=== PATIENT | female | born 1995 | race Caucasian/White ===

== ENCOUNTER 2017-05-11 18:50 | Outpatient (CLI) | payer OTHER | END 2017-05-11 18:51 | disposition critical access hospital (66) | LOC: EMS 18:50 | PROVIDERS: ATTEND Surgery | DX: R55 Syncope and collapse (principal) | CPT/HCPCS: A0425; A0427 ==

== ENCOUNTER 2017-05-11 19:00 | Emergency (ER) | payer OTHER ==
[2017-05-11] MEDS ORDERED: SODIUM CHLORIDE 0.9% 1,000 ML IV ONE (19:31)
--- NOTE | 2017-05-11 19:34 | ED Physician Documentation ---
PD HPI SYNCOPE - Stated complaint Stated Complaint: SYNCOPE - Chief complaint Chief Complaint: Neuro - History obtained from History obtained from: Patient, Family - History of Present Illness Witnessed: Witnessed Timing - onset: Today Duration: Minutes (1) Preceding symptoms: Abdominal pain (states). No: Nausea / vomiting Injury occurred: No: Fell Pain level max: 0 Similar symptoms before: Has not had sx before Recently seen: Not recently seen - Additional information Additional information: Patient is a 21-year-old female who presents to the emergency department with syncope today. She was in hot bath, felt lightheaded, stood up out of the bath , began to feel more lightheaded and dizzy and then passed out against the wall. She was found to be hypotensive with EMS and given IV fluids. Blood sugar was normal with EMS. States she is starting to feel better now. Has not passed out before. She is currently on her menses. Denies any possibility of . No new medication that she is on. No recent illnesses. No chest pain. No palpitations. Review of Systems Constitutional: denies: Fever, Chills Ears: denies: Ear pain Nose: denies: Rhinorrhea / runny nose, Congestion Throat: denies: Sore throat Cardiac: denies: Chest pain / pressure Respiratory: denies: Cough GI: reports: Abdominal Pain (initially had a small amount of abd pain, but now resolved.). denies: Nausea, Vomiting, Diarrhea Skin: denies: Rash Musculoskeletal: denies: Neck pain, Back pain Neurologic: denies: Headache PD PAST MEDICAL HISTORY - Past Medical History Past Medical History: No Cardiovascular: None Respiratory: None Neuro: None Endocrine/Autoimmune: None GI: None CHANGE MANAGEMENT CONSULTANT: None : None HEENT: None Psych: None Musculoskeletal: None Derm: None - Past Surgical History Past Surgical History: No - Present Medications Home Medications: Ambulatory Orders Medication Instructions Recorded Confirmed Baclofen 0 mg PO PRN 05/11/17 Norethindrone-E.estradiol-Iron 1 each PO DAILY 05/11/17 05/11/17 [[id number] 1-0.02(44)-75] - Allergies Allergies/Adverse Reactions: Allergies Allergy/AdvReac Type Severity Reaction Status Date / Time No Known Drug Allergies Allergy Verified 05/11/17 19:12 - Social History Does the pt smoke?: No Smoking Status: Never smoker Does the pt drink ETOH?: No Does the pt have substance abuse?: No - Immunizations Immunizations are current?: Yes PD ED PE NORMAL - Vitals Vital signs reviewed: Yes - General General: Alert and oriented X 3, No acute distress, Well developed/nourished - HEENT HEENT: PERRL, Ears normal, Moist mucous membranes, Pharynx benign, Other ( abrasion to the forehead. no scalp hematomas. no palpable fractures) - Neck Neck: Supple, no meningeal sign, No bony TTP - Cardiac Cardiac: RRR, Strong equal pulses - Respiratory Respiratory: No respiratory distress, Clear bilaterally - Abdomen Abdomen: Soft, Non tender, Non distended - Back Back: No CVA TTP, No spinal TTP - Derm Derm: Warm and dry, No rash - Extremities Extremities: No deformity, No tenderness to palpate, Normal ROM s pain - Neuro Neuro: Alert and oriented X 3, leadership development manager 2-12 intact Eye Opening: Spontaneous Motor: Obeys Commands Verbal: Oriented GCS Score: 15 - Psych Psych: Normal mood, Normal affect Results - Vitals Vitals: Vital Signs - 24 hr 05/11/17 05/11/17 05/11/17 19:07 19:28 20:21 Temperature 37.2 C Heart Rate 76 89 84 Respiratory 16 18 18 Rate Blood Pressure 123/70 123/70 107/62 O2 Saturation 99 100 99 Oxygen O2 Source Room air - EKG (time done) 1912 Rate: Rate (enter#) (80) Rhythm: NSR [place]: Normal Intervals: Normal [place] QRS: Normal Ischemia: Normal ST segments Computer interpretation: Agree with computer - Labs Labs: Laboratory Tests 05/11/17 05/11/17 05/11/17 19:22 19:22 20:07 WBC 7.5 RBC 4.23 Hgb 12.5 Hct 37.3 MCV 88.2 MCH 29.6 MCHC 33.6 RDW 13.3 Plt Count 243 MPV 8.3 Neut # 5.2 Lymph # 1.8 [place] # 0.3 Eos # 0.1 Baso # 0.1 Absolute Nucleated RBC 0.00 Nucleated RBC % 0.0 Sodium 137 Potassium 3.5 Chloride 105 Carbon Dioxide 22 Anion Gap 10.0 BUN 8 Creatinine 0.7 Estimated GFR (MDRD) 108 Glucose 85 Calcium 8.9 Urine Color YELLOW Urine Clarity CLEAR Urine pH 6.0 Ur Specific [place] >=1.030 H Urine Protein NEGATIVE Urine Glucose (UA) NEGATIVE Urine Ketones 15 H Urine Occult Blood TRACE-INTA Urine Nitrite NEGATIVE Urine Bilirubin NEGATIVE Urine Urobilinogen 0.2 (NORMAL) Ur Leukocyte Esterase NEGATIVE Ur Microscopic Review NOT INDICATED Urine Culture Comments NOT INDICATED Urine HCG, Qual 05/11/17 20:07 WBC RBC Hgb Hct MCV MCH MCHC RDW Plt Count MPV Neut # Lymph # [place] # Eos # Baso # Absolute Nucleated RBC Nucleated RBC % Sodium Potassium Chloride Carbon Dioxide Anion Gap BUN Creatinine Estimated GFR (MDRD) Glucose Calcium Urine Color Urine Clarity Urine pH Ur Specific [place] >=1.030 H Urine Protein Urine Glucose (UA) Urine Ketones Urine Occult Blood Urine Nitrite Urine Bilirubin Urine Urobilinogen Ur Leukocyte Esterase Ur Microscopic Review Urine Culture Comments Urine HCG, Qual NEGATIVE PD MEDICAL DECISION MAKING - ED course Complexity details: reviewed results, re-evaluated patient, considered differential, d/w patient, d/w family ED course: Patient is a 21-year-old female who presents to the emergency department after an episode of vasovagal syncope today. She feels better after IV fluids here. Tolerating p.o. without difficulty. We will continue supportive care and follow -up with her doctor. No arrhythmias on telemetry. Normal EKG. Normal laboratory testing. Patient and family counseled regarding signs and symptoms for which I believe and urgent re-evaluation would be necessary. Patient with good understanding of and agreement to plan and is comfortable going home at this time This document was made in part using voice recognition software. While efforts are made to proofread this document, sound alike and grammatical errors may occur. Departure - Departure Disposition: 01 Home, Self Care Clinical Impression: Vasovagal syncope, Dehydration Condition: Good Instructions: ED Syncope Vasovagal Follow-Up: MICHEAL PEARL [Primary Care Provider] - Within 1 week Comments: Drink plenty of fluids and rest. Return if you worsen. Discharge Date/Time: 05/11/17 20:40
[2017-05-11 19:40] LABS: BASOPHILS # (AUTO) 0.1 10^3/uL (0.0-0.1); BASOPHILS % (AUTO) 1.1 %; EOSINOPHILS # (AUTO) 0.1 10^3/uL (0.0-0.7); EOSINOPHILS % (AUTO) 1.3 %; HCT - HEMATOCRIT 37.3 % (37.0-47.0); HGB - HEMOGLOBIN 12.5 g/dL (12.0-16.0); LYMPHOCYTES # (AUTO) 1.8 10^3/uL (1.5-3.5); LYMPHOCYTES % (AUTO) 24.2 %; MEAN CORPUSCULAR HEMOGLOBIN 29.6 pg (27.0-31.0); MEAN CORPUSCULAR HGB CONC 33.6 g/dL (32.0-36.0); MEAN CORPUSCULAR VOLUME 88.2 fL (81.0-99.0); MEAN PLATELET VOLUME 8.3 fL (7.9-10.8); MONOCYTES # (AUTO) 0.3 10^3/uL (0.0-1.0); MONOCYTES % (AUTO) 4.3 %; NEUTROPHILS # (AUTO) 5.2 10^3/uL (1.5-6.6); NEUTROPHILS % (AUTO) 69.1 %; RED BLOOD COUNT 4.23 10^6/uL (4.20-5.40); RED CELL DISTRIBUTION WIDTH 13.3 % (12.0-15.0); UNCORRECTED WHITE BLOOD COUNT 7.5 x10^3/uL; WHITE BLOOD COUNT 7.5 x10^3/uL (4.8-10.8)
[2017-05-11 19:46] LABS: CALCIUM 8.9 mg/dL (8.5-10.3); CREATININE 0.7 mg/dL (0.4-1.0); POTASSIUM 3.5 mmol/L (3.5-5.0)
[2017-05-11 20:16] LABS: BILIRUBIN,URINE NEGATIVE (NEGATIVE)
[2017-05-11] MEDS ORDERED: ACETAMINOPHEN 325 MG TABLET PO STA (20:17)
[2017-05-11 20:19] LABS: UA CHARGE (STRIP ONLY) YES; UR CULTURE IF IND NOT INDICATED
[2017-05-11 20:20] LABS: HCG UR QUAL NEGATIVE
[2017-05-11 20:22] VITALS: BP 107/62
== END 2017-05-11 20:40 | disposition home or self-care (01) ==
LOC: EDBD → ED 19:00
DX: R55 Syncope and collapse (principal); E86.0 Dehydration
CPT/HCPCS: 36415; 80048; 81003; 81025; 85025; 93005; 96360; 99284; A9270; 81001; 87086